=== PATIENT | female | born 1955 | race Caucasian/White ===

== ENCOUNTER → 2022-06-24 12:55 | Outpatient (CLI) | payer MEDICARE, OTHER, SELFPAY ==
[2022-06-24 14:32] LABS: COVID19 -Nasal RAPID Negative (Negative)
== END ==
PROVIDERS: PCP Family Medicine; Referring Provider Orthopaedic Surgery; Visit Provider Orthopaedic Surgery
DX: Z20.822 Contact with and (suspected) exposure to COVID-19 (principal)
CPT/HCPCS: 87635; C9803

== ENCOUNTER 2022-06-26 12:08 | Day surgery (SDC) | payer MEDICARE, OTHER, SELFPAY ==
[2022-06-23 09:47] VITALS: BMI 35.1
[2022-06-26] VITALS (10 sets, daily range): BP systolic 104–145; BP diastolic 60–82; PULSE 63–90; RESP 14–18; TEMP 35.9–36.6; O2SAT 95–99; BMI 35.1
--- NOTE | 2022-06-26 | DI.RAD.S_ITS ---
PROCEDURE: XR HIP W PEL IF DONE LT 2V INDICATIONS: TOTAL LEFT HIP TECHNIQUE: AP pelvis and lateral view of the left hip acquired. COMPARISON: [facility], FREDY, XR PELVIS 1-2V, 06/26/2022, 16:42. FINDINGS: Bones: Left hip arthroplasty, with appropriate appearance. Mild to moderate right hip degenerative changes. Soft tissues: Overlying postoperative changes. Right pelvis/right lower quadrant clips and hernia repair. IMPRESSION: Expected postoperative appearance of left arthroplasty. Pelvic ring not evaluated due to obliquity. Dictated by: Nicolas White M.D. on 06/26/2022 at 19:12 Approved by: Nicolas White M.D. on 06/26/2022 at 19:14
[2022-06-26] MEDS: ACETAMINOPHEN 325 MG TABLET 975 MG PO (12:59)
[2022-06-26] MEDS: LACTATED RINGERS 1,000 ML 42 ML IV ×2 (13:16→16:00)
[2022-06-26] MEDS: VANCOMYCIN 1,000 MG/200 ML PIGGYBACK 200 MG IV (14:19)
--- NOTE | 2022-06-26 14:26 | PM.PREOP ---
Pre-operative Note COVID-19 COVID-19 status: Negative Interval Note History & Physical reviewed/Exam performed by Physician: Yes Changes to H&P: No
--- NOTE | 2022-06-26 14:27 | PM.OP.1 ---
Operative Date/Time/Diagnoses Date of procedure: 06/26/22 Time of procedure: 15:00 Pre-op diagnosis: Severe left hip AVN Post-op diagnosis: same Procedure & Clinicians Procedure: Left total hip arthroplasty, posterior approach Same procedure as scheduled: Yes Indications: The patient has had progressively worsening left hip pain with radiographic changes consistent with arthritis. Non-operative management has failed and the patient has requested total hip replacement. The risks, benefits and alternatives to surgery were discussed with the patient prior to proceeding. Risks discussed included, but were not limited to, failure to relieve pain, leg length discrepancy, dislocation, stiffness, infection, nerve damage, deep venous thrombosis, pulmonary embolism, stroke, coma, heart attack, permanent paralysis and , as well as the potential need for eventual revision of the prosthetic. Surgeon: Sonja Crawford Hot Blaster: Viv Rachel Anesthesia Type: General and Spinal Operative Notes Findings: Severe left hip AVN, adequate stability Closure Type: primary Specimen(s): none sent Prosthetic devices, grafts, tissues, transplants, or devices: Crawford [employer] Nephew 48 mm Redapt cup, neutral poly liner, size 13 cemented Synergy,-3 by 32mm Oxinium head, two 6.5 mm screw, Applied: drain(s) Estimated Blood Loss (mL): 250 Blood products transfused: none Procedure in detail: The patient was seen in the pre-operative area, where the patient identified the left hip as the operative site and this was marked with my initials. The patient received pre-operative antibiotics and was taken to the operating room and placed on the operative table in the right lateral decubitus position after satisfactory anesthesia. A electrical systems drafter out was performed. The left leg was prepared from the ankle to the iliac crest with ChloroPrep in the usual fashion and draped through sterile drapes. The hip was approached through an approximately 20 cm incision centered over the greater trochanter and curving gently posteriorly as it went proximally. This was carried sharply to the fascia sami, which was divided and retracted with a self retaining retractor. The trochanteric bursa was excised with care being taken to avoid the sciatic nerve, which was identified and protected throughout the case. The short external rotators were incised and the capsulomuscular flap was raised and tagged for later repair. The hip was dislocated, and a femoral neck osteotomy performed approximately 15 mm above the lesser trochanter. Retractors were placed around the femur. The canal was opened with a box cutting osteotome, followed by a T handled reamer and a lateralizing reamer. The reamer was then used, followed by sequential broaching until there was good stability of the broach in the femur. Retractors were placed to expose the acetabulum. The labrum and central soft tissues were removed. Reaming was performed initially going up in 2 mm increments, then 1 mm increments until good bite was obtained with an odd sized reamer. The cup 1 mm larger than the last reamer was then inserted using the appropriate anteversion guides. She was further stabilized with several screws as she had severe soft bone. A trial neutral liner was placed. The broach was placed in the canal. A trial head and neck were then placed and the hip relocated and checked for leg length and stability. An intraoperative film confirmed the component position and no evidence of fracture. She had extremely soft bone and there was not good rotational stability of the broach. It was felt that she was better managed with a cemented option. A specifically place the broached it down and then did calcar reaming to optimize her alignment. There was some comminution of the greater trochanter small fragments. The patient was stable in the position of sleep, of squatting, and could be put through a range of motion with 45 degrees internal rotation without dislocation. At 90 degrees flexion, internal rotation to 70? was possible before dislocation. This was felt to be satisfactory and the appropriate components were opened, and the trials were removed. The acetabular liner was impacted into position. The final stem was then cemented into the prepared femoral canal. A brief Betadine soak was performed while trialing with head options. The hip was meticulously irrigated with normal saline. The greater trochanter slight fragmentation was repaired with interrupted Tevdek. Finally the femoral head was impacted onto the stem. The acetabulum was cleared of all material and the hip relocated one final time. The capsulomuscular flap was then repaired to the greater trochanter though an awl hole using the tag sutures. The short external rotators were repaired with a nonabsorbable suture. A deep drain was placed and brought out anteriorly. The fascia sami was closed with Vicryl. The subcutaneous layer was closed with barbed sutures and surgical glue. A tiffany dressing was applied and the patient was taken to recovery having tolerated the procedure well. Complications: none Post-operative Condition: stable Disposition: Acute Care Plan for aftercare: The patient will be maintained on a standard total hip replacement protocol with weight bearing as tolerated and posterior hip precautions. The patient will receive Aspirin and sequential compression devices for DVT prophylaxis. The patient will be discharged home when safe for the home environment.
--- NOTE | 2022-06-26 15:00 | DI.RAD.S_ITS ---
PROCEDURE: XR PELVIS 1-2V INDICATIONS: left SABRA TECHNIQUE: Intra-operative view of the pelvis and hip acquired. [facility] [place] [place] [place], [facility] PELVIS WITH LATERAL HIP LEFT, 05/02/2022, 9:33. FINDINGS: Bones: Intraoperative devices prior to placement of arthroplasty prostheses are in expected positions. No fractures or suspicious bony lesions. Soft tissues: Overlying surgical retractors are present, along with other intraoperative changes. IMPRESSION: Left total hip arthroplasty components are seen in expected positions. Dictated by: Petar Logan M.D. on 06/27/2022 at 11:00 Approved by: Petar Logan M.D. on 06/27/2022 at 11:01
[2022-06-26] MEDS: TRANEXAMIC ACID 1,000 MG VIAL 2000 MG INJ ×2 (15:35→17:57)
[2022-06-26] MEDS: CEFAZOLIN 2 GM/100 ML PREMIX 100 ML IV ×2 (15:35→21:43)
--- NOTE | 2022-06-26 16:01 | SUR.OPER ---
Lateral on padded OR bed. Gel axillary roll. Arms secured on padded armboard with pillow supporting top arm. Padded hip positioner braces x4 - anterior and posterior chest and pelvis. Additional gel pad used anterior pelvis. Gel pad under bottom leg from knee to foot and secured with tape over sheet.
[2022-06-26] MEDS: BUPIVACAINE 0.25% (PF) 60 ML, EPINEPHrine 0.3 MG INJ (16:06)
[2022-06-26] MEDS: BUPIVACAINE LIPOSOME 266 MG/20 ML VIAL INJ (17:45)
--- NOTE | 2022-06-26 18:52 | SUR.PHASEI ---
report called to PADILLA RN and opportunity for questions given. Pt transferring to room 206 and is agreeable with plan of care.
[2022-06-26] MEDS: DULOXETINE 30 MG CAPSULE PO (20:10)
[2022-06-26] MEDS: DOCUSATE 100 MG CAPSULE PO (20:10)
[2022-06-26] MEDS: ROPINIROLE 0.25 MG TABLET 1 MG PO (20:10)
[2022-06-26] MEDS: NYSTATIN POWDER 15GM 1 APPLIC TOP (20:10)
[2022-06-26] MEDS: ASPIRIN EC 81 MG TABLET PO (20:10)
[2022-06-26] MEDS: allopurinoL 300 MG TABLET PO (20:10)
[2022-06-26] MEDS: PRAVASTATIN 20 MG TABLET PO (20:10)
--- NOTE | 2022-06-26 21:52 | PC.NURSE ---
Patient rather motivated to recover. Ambulated to bathroom, standby assist, and voided after being on floor for three hours.
[2022-06-26] MEDS: ACETAMINOPHEN 325 MG TABLET 650 MG PO (23:56)
[2022-06-26] MEDS: hydrOXYzine pamoate 25 MG CAPSULE PO (23:56)
[2022-06-27 03:00] VITALS: BP 126/65; PULSE 58; RESP 16; TEMP 36; O2SAT 95
[2022-06-27] MEDS: CEFAZOLIN 2 GM/100 ML PREMIX 100 ML IV (05:45)
[2022-06-27 06:12] LABS: Hemoglobin 9.3 g/dL (12.0-16.0)
--- NOTE | 2022-06-27 07:32 | PM.DS.1 ---
History of Present Illness History of Present Illness Date Patient Seen: 06/27/22 Time Patient Seen: 07:32 Chief complaint: left total arthroplasty Narrative: Operative Date/Time/Diagnoses Date of procedure: 06/26/22 Time of procedure: 15:00 Pre-op diagnosis: Severe left hip AVN Post-op diagnosis: same Procedure & Clinicians Procedure: Left total hip arthroplasty, posterior approach Same procedure as scheduled: Yes Indications: The patient has had progressively worsening left hip pain with radiographic changes consistent with arthritis. Non-operative management has failed and the patient has requested total hip replacement. The risks, benefits and alternatives to surgery were discussed with the patient prior to proceeding. Risks discussed included, but were not limited to, failure to relieve pain, leg length discrepancy, dislocation, stiffness, infection, nerve damage, deep venous thrombosis, pulmonary embolism, stroke, coma, heart attack, permanent paralysis and , as well as the potential need for eventual revision of the prosthetic. Surgeon: Sonja Crawford Language Arts Teacher: Viv Rachel Anesthesia Type: General and Spinal Operative Notes Findings: Severe left hip AVN, adequate stability Closure Type: primary Specimen(s): none sent Prosthetic devices, grafts, tissues, transplants, or devices: Crawford [employer] Nephew 48 mm Redapt cup, neutral poly liner, size 13 cemented Synergy,-3 by 32mm Oxinium head, two 6.5 mm screw, Applied: drain(s) Estimated Blood Loss (mL): 250 Blood products transfused: none Discharge Providers Provider Discharge Date: 06/27/22 Primary care physician: Ricki Phillips MD Consults: 06/23/22 12:50 Consult to Anesthesiology Routine Comment: Consulting Provider: Anesthesiologist Reason for consultation: Surgeon requested re: Multiple medical problems 06/25/22 16:42 Consult to Anesthesiology Routine Comment: Consulting Provider: Anesthesiologist Reason for consultation: Regional block for post operative pain control 06/26/22 19:12 Consult to Discharge Planning Routine Comment: Consult to Physical Therapy Evaluate & Treat Comment: Physician Instructions: post op SABRA protocol Consult to Respiratory Therapy Evaluate & Treat Comment: Physician Instructions: Evaluate and treat Discharge provider: Deena Elizalde PA-C Summary Hospital Course Discharge Diagnosis: s/p LEFT SABRA Hospital Course: Ms Humphreys'whitley hospital course was uremarkable. On POD# 1 she was comfortable and wanted to go home. She was eating and voiding without difficulty and was evaluated by PT during her stay. Her pain was well-controlled on oral medication. Her late 's cousin was in town to stay with her and help her. Exam Vital Signs (past 8 hours): - 06/27/22 03:00 Temperature 96.8 F L Pulse Rate 58 L Respiratory Rate 16 Blood Pressure 126/65 Pulse Oximetry 95 Oxygen Flow Rate 0 Oxygen Delivery Method Room Air Oxygen Flow Rate 0 Narrative Exam Narrative: 5/5 strength in quadriceps, hamstrings, DF, PF, EHL on left; 3/4 hip flexors. Sensation to light touch intact throughout BLE. Calves soft, compressible, nontender and without palpable cords or masses. TAVO dressing with scant bloody drainage, functioning. Objective Labs Result Diagrams: 06/27/22 05:50 Labs: Laboratory Results - last 24 hr 06/27/22 05:50 Hgb 9.3 L Hct 28.0 L PFSH Medical History Anesthesia complication Arthritis Chronic bronchitis CKD (chronic kidney disease) Colitis Depression Diverticulitis Edema GERD (gastroesophageal reflux disease) Hearing impaired HTN (hypertension) Hypothyroidism Muscle spasm STAN (obstructive sleep apnea) Osteoarthritis Overactive bladder Surgical History History of hysterectomy Hx of bariatric surgery (09/24/21) Hx of breast reduction, elective Hx of hernia repair Hx of tonsillectomy Social History household members: none Smoking Status: Never smoker alcohol intake: current Discharge Assessment & Plan Assessment and Plan Assessment: s/p LEFT total hip arthroplasty Plan of Treatment: D/C home, WBAT to LLE, posterior hip precautions. Multimodal pain control, ASA 81 mg BID x 6 weeks for VTE prophylaxis. Discharge Plan Discharge Plan Patient Disposition: Home Discharge orders & Medications Discharge Orders: Discharge (Order); Ordered 06/27/22 Ordered By: Deena Elizalde Prescriptions: New acetaminophen 325 mg Tablet 650 mg PO Q6HR Qty: 240 1RF aspirin 81 mg Tablet,Delayed Release (Dr/Ec) 81 mg PO BID Qty: 90 0RF docusate sodium 100 mg Capsule 100 mg PO BID Qty: 60 2RF oxycodone 5 mg Tablet 5 mg PO Q4-6H PRN (Reason: Pain, Moderate (4-6)) Qty: 60 0RF Rx Instructions: 1-2 tabs q 4-6 hrs for moderate to severe pain Continued losartan 50 mg Tablet 50 mg PO DAILY furosemide [Lasix] 40 mg Tablet 80 mg PO QPM potassium chloride 10 mEq Capsule, Extended Release 10 meq PO BID fexofenadine 60 mg Tablet 60 mg PO QAM liothyronine 5 mcg Tablet 5 mcg PO DAILY methocarbamol 750 mg Tablet 750 mg PO TID PRN (Reason: Muscle Spasm) pantoprazole 40 mg Tablet,Delayed Release (Dr/Ec) 40 mg PO DAILY levothyroxine 125 mcg Tablet 125 mcg PO DAILY ropinirole 0.5 mg Tablet 0.5 - 1 mg PO BEDTIME Rx Instructions: administer 1-3 hours before bedtime hydroxyzine HCl 25 mg Tablet 25 mg PO BID PRN (Reason: Anxiety) allopurinol 300 mg Tablet 300 mg PO BEDTIME pravastatin 20 mg Tablet 20 mg PO BEDTIME nystatin 100,000 unit/gram Powder 1 applic TOPICAL BID-TID ondansetron 4 mg Tablet,Disintegrating 4 mg PO Q6H PRN (Reason: Nausea) duloxetine 30 mg Capsule,Delayed Release(Dr/Ec) 30 mg PO BID oxybutynin chloride 15 mg Tablet Extended Release 24hr 15 mg PO DAILY Discontinued acetaminophen 500 mg Tablet 500 - 1,000 mg PO Q3-4H PRN (Reason: Pain) Rx Instructions: 500 hydrocodone-acetaminophen 7.5-325 mg Tablet 1 tab PO BID Follow up/Referrals: Sonja Crawford MD [Physician] - As previously scheduled (Follow up with Viv Rachel PA-C, on 07/09/2022 @ 2:00 pm at [facility] in [place].) Ricki Phillips MD [Primary Care Provider] - Diet/Activity/Treatments Diet: Diet as Tolerated Activity: Weightbearing as tolerated to left leg. Posterior hip precautions. Skin/Wound/Dressing Care Report to your healthcare provider any signs of infection, such as:: chills, fever, night sweats, unusual drainage and unusual redness Dressing: May shower. Can get dressing and battery pack wet, but try to keep battery pack out of direct spray. Batteries will in 5-7 days, at which point the battery pack may be cut off and disposed of. Leave dressing in place until follow up in office. No bathing or otherwise soaking incision. Call office if dressing becomes saturated inside. Visit Report/Discharge Packet Instructions: DI for Hip Replacement, How to Prevent Falls, Oxycodone Stand Alone Forms: Surgery Discharge Discharge Data Primary Care Provider: Ricki Phillips Attending Provider: Sonja Crawford
[2022-06-27 09:07] VITALS: BP 133/84; PULSE 88
[2022-06-27] MEDS: DULOXETINE 30 MG CAPSULE PO (09:07)
[2022-06-27] MEDS: LOSARTAN 50 MG TABLET PO (09:07)
[2022-06-27] MEDS: LIOTHYRONINE 5 MCG TABLET PO (09:08)
[2022-06-27] MEDS: PANTOPRAZOLE DR 40 MG TABLET PO (09:08)
[2022-06-27] MEDS: LEVOTHYROXINE 125 MCG TABLET PO (09:08)
[2022-06-27] MEDS: DOCUSATE 100 MG CAPSULE PO (09:08)
[2022-06-27] MEDS: ASPIRIN EC 81 MG TABLET PO (09:08)
[2022-06-27] MEDS: OXYCODONE IR 5 MG TABLET PO (09:09)
[2022-06-27] MEDS: LORATADINE 10 MG TABLET PO (09:10)
--- NOTE | 2022-06-27 09:58 | PT.IIE ---
Current Diagnoses Unilateral primary osteoarthritis, left hip (06/26/22) Idiopathic aseptic necrosis of left femur (06/26/22) Surgery Performed Operation Date: 06/26/22 14:15 Actual Procedures p Total Hip Arthroplasty(Left) - Sonja Crawford MD Surgical History (Last Reviewed 06/26/22 @ 12:40 by Ryann Tang, RN) History of hysterectomy Hx of bariatric surgery (09/24/21) Hx of breast reduction, elective Hx of hernia repair Hx of tonsillectomy Medical History (Last Reviewed 06/26/22 @ 12:40 by Ryann Tang, BETTE) Anesthesia complication Arthritis Chronic bronchitis CKD (chronic kidney disease) Colitis Depression Diverticulitis Edema GERD (gastroesophageal reflux disease) Hearing impaired HTN (hypertension) Hypothyroidism Muscle spasm STAN (obstructive sleep apnea) Osteoarthritis Overactive bladder Physical Therapy Inpatient Evaluation/Re-Eval M1 PT/OT-IP Prior Functional Status Start: 06/27/22 12:46 Freq: NEEDED Status: Active Protocol: Document 06/27/22 09:58 AB (Rec: 06/27/22 13:01 [email or web address]) Medical Review Prior Functional Status Medical History Reviewed Yes Communication able to make needs known Mobility and Gait pt stated that she is independent with all mobilities and ambulation using FWW; able to ambulate short distance using SPC from car to cart when going grocery shopping Social History Household Members none Living Arrangements Apartment/Condo Number of Floors (Floors) One Floor Number of Stairs To Enter/Railing? no steps to enter pt lives in a senior housing Home Environment High Toilet,Walk in Shower Home Equipment Front Wheel Walker,Shower Seat with Backrest,Shower Seat without Backrest,Hand Held Shower,Grab Bars In Shower Additional Social History Comment pt's cousin will be staying with pt for ~ 1week to assist her pt stated that she has to step up a stool to get into her high bed M2 PT-IP Current Condition Start: 06/27/22 12:46 Freq: NEEDED Status: Active Protocol: Document 06/27/22 09:58 AB (Rec: 06/27/22 13:01 [email or web address]) Physical Therapy Current Condition Current Condition Evaluation Date 06/27/22 Treatment Diagnosis s/p L SABRA posterior approach; difficulty in walking Onset Date 06/26/22 M3 PT-IP Subjective Start: 06/27/22 12:46 Freq: NEEDED Status: Active Protocol: Document 06/27/22 09:58 AB (Rec: 06/27/22 13:01 AB [email or web address]) Subjective Physical Therapy Visit Type Type Initial Evaluation Visit Start Time 09:58 Visit Stop Time 11:19 Total Visit Minutes 81 Number of SEAMAN OFFICER Visits 0 Physical Therapy Visit Comments Patient Comments agreeable to do PT M4 PT-IP Mobility and Gait Start: 06/27/22 12:46 Freq: NEEDED Status: Active Protocol: Document 06/27/22 09:58 AB (Rec: 06/27/22 13:01 AB [id number]) PT-Bed Mobility Assessment Supine to Sit Supine to Sit Minimal Assistance,Moderate Assistance,1 Person Assistance Sit to Supine Sit to Supine Minimal Assistance,Moderate Assistance PT-Transfer Assessment Sit to and From Stand Sit to and from Stand Contact Guard Assistance, Minimal Assistance,1 Person Assistance,Use of Upper Extremities Equipment Transfer Assistive Device Gait Belt,Front Wheeled Walker Orthotic/Prosthetic Devices or Brace: No Transfers Transfer Destination Chair Transfer Technique ambulated Transfer Ability Level of Assist Contact Guard Assistance, Minimal Assistance,1 Person Assistance,Use of Upper Extremities Comments Mobility Comments educated pt and caregiver on posterior hip precautions. pt able to recall after initial cues provided. completed supine to sit mod A and cues. Caregiver training conducted. educated pt and caregiver on supine<>sit techniques and how caregiver will assist pt with bed mobility. pt completed again and caregiver was able to assist pt safely. educated caregiver on use of safety belt and how to assist pt. caregiver was able to put safety belt on and assisted pt with sit to stand CGA to min A and ambulated in room ~ 30 ft CGA to min A. educated pt on up/down step stool to get into the bed. step stool positioned to EOB and pt was able to get up the step using FWW CGA to min A. required max A and 3 attempts to descent to the step. informed pt and caregiver to use FWW to get into the bed but will not need step stool to get up from the bed. pt demonstrated again and completed with caregiver assisting. pt ambulated to the chair using FWW CGA to min A. positioned pt on the chair . call light and table placed within reach. pt and caregiver has no other concerns. Gait Assessment Gait Gait Assistance Required: Contact Guard Assist,Minimum Assistance Distance (Feet) 30 Able to Maintain Weight Bearing Status Yes During Gait Assistive Devices Assistive Device Gait Belt,Front Wheeled Walker Orthotic/Prosthetic Devices or Brace: No Gait Deviations General Gait Pattern Antalgic,Decreased Stride Length,Decreased Feet Clearance,Step-to Gait Factors Limiting Gait Function Factors Limiting Gait Function Decreased Activity Tolerance, Decreased Strength,Difficulty Following Directions,Limited Range of Motion,Pain,Poor Balance,Poor Safety Awareness Stair Climbing Assessment Evaluation Level of Assist On Stairs Contact Guard Assistance, Minimal Assistance,Maximal Assistance Devices Stair Climbing Assistive Devices Front Wheel Walker Technique/Endurance Stair Climbing Direction Ascend and Descend Stair Climbing Technique Step to Step Number of Steps Climbed 1 Query Text: Stair Climbing Set # Repetitions (reps) 2 Comments Stair Climbing Comments pls refer to mobility section for details PT-Balance Assessment Sitting Balance and Reactions Static Sitting Balance Ability Good Dynamic Sitting Balance Ability Good Standing Balance and Reactions Static Standing Balance Ability Fair Dynamic Standing Balance Ability Fair Device Used FWW M5 PT-IP Objective Assessments Start: 06/27/22 12:46 Freq: NEEDED Status: Active Protocol: Document 06/27/22 09:58 AB (Rec: 06/27/22 13:01 [email or web address]) Orientation Orientation/Cognition Level of Alertness Alert Orientation Name,Age,Place,Situation Language Function Ability Hard of Hearing Safety Awareness Decreased Safety Awareness Memory Description No Deficits Noted Gross Range of Motion Lower Extremity ROM Assessment Within Functional Limits Strength Lower Extremity Strength Assessment Left Impaired Hip 3+/5 Knee 3+/5 Coordination Assessment Gross Coordination Gross Coordination WNL Sensation Assessment Sensation Gross Sensation WNL Muscle Tone Muscle Tone WNL Yes M6 PT-IP Treatment Start: 06/27/22 12:46 Freq: NEEDED Status: Active Protocol: Document 06/27/22 09:58 AB (Rec: 06/27/22 13:01 [email or web address]) Physical Therapy Treatment Education Education Provided Precautions,Weight Bearing Status,Post-Op Packet,Safety M7 PT-IP Assessment and Plan Start: 06/27/22 12:46 Freq: NEEDED Status: Active Protocol: Document 06/27/22 09:58 AB (Rec: 06/27/22 13:01 [email or web address]) PT Summary Assessment and Plan Potential Rehabilitation Potential Fair Status of Condition at Evaluation Evolving Summary Impairments Pain,ROM,Strength,Balance, Coordination,Sensation,Tone, Cognition,Bed Mobility, Transfers,Gait,Activity Tolerance Assessment Summary pt requiring CGA to min A with mobility. caregiver training conducted and pt's cousin will be able to assist pt. pt will benefit from HHPT. Goals Bed Mobility Goal Standby Assistance Transfer Goal Standby Assistance,Front Wheeled Walker Gait Goal Standby Assistance,Front Wheel Walker Gait Distance 200 Other Goals up/down step stool using FWW Frequency of Treatment Frequency Of Treatment Twice a Day Treatment Plan Physical Therapy Treatment Plan Bed Mobility Training,Transfer Training,Gait Training, Therapeutic Exercise,Balance Retraining,Post Op Education, Discharge Planning,Hot or Cold Pack,Neuromuscular Re-ed, Coordination Retraining,Manual Therapy Precautions Posterior Hip Precautions No Hip Flexion > 90 degrees,No Hip Internal Rotation,No Hip Adduction Weight Bearing Status Weight Bearing Status Weight Bear as Tolerated Allowed Weight Bearing Amount (enter % LLE WBAT or #) (%) Recommendations To Nursing Amount of Assist Needed 1 Person Assist Discharge Recommendations PT Discharge Recommendations Home with 01/06 Assist Available,Home Health Transportation Needs at Discharge Private Vehicle
--- NOTE | 2022-06-27 11:15 | CM.DANOTE ---
DCP Assessment: Payor: Medicare PCP: MD Alan Pt is a 67 y.o. F who presented to the hospital for planned L hip surgery. Pt was taken to the OR on 06/26 and surgery performed by Dr. Crawford. Pt admitted for further evaluation and management of surgical procedure. DCP met with pt this morning to discuss discharge needs. Pt sitting up in the bed watching TV. DCP introduced herself and role. Pt states she lives alone in [place] in an apartment on the ground level. Pt states that she owns a walker and cane and still drives at baseline. Pt states that she has a friend, Loulou, who was presented in the room, who would be assisting her home and helping her recover. Loulou will provide transport from the hospital. Pt denies any resources needs at this time. DCP does not identify any at this time. Pt to work with PT evaluation today and if cleared, pt to be discharged. Whiteboard updated and instructed to call. Pt thankful for the discussion. P: Pt to do PT eval and if she passes, pt to discharge home via friend POV. Ritu Downing RN/JOHNSON Discharge Planning/Care Management CM Discharge Assessment Start: 06/27/22 08:03 Freq: Status: Active Protocol: Document 06/27/22 09:20 AJ (Rec: 06/27/22 09:21 AJ [id number]) Discharge Planning Assessment Assigned White Metal Corrosion Proofer Ritu Downing RN/JOHNSON Advance Directives? Yes Advance Directives on File No History Provided By Patient Prior Living Arrangements Apartment/Condo Household Members none Type of transporation used prior to Drives own vehicle admit Independent with ADL's Yes Is patient alert and oriented? Yes DME Already Rented / Owned FWW / Walker,Cane Discharge Plan Home Referrals Initiated None needed Whiteboard Updated in Patient Room with Yes name and ext. # of White Metal Corrosion Proofer Comment Instructed to call Review Status In Process Please Provide Date Initial DC 06/27/22 Assessment Was Performed Next Review Type Continued Stay Review Pre-Anesthesia Assessment Start: 06/20/22 08:44 Freq: Status: Active Protocol: Document 06/23/22 09:47 CAB (Rec: 06/20/22 09:06 CAB [id number]) Pre-Anesthesia Assessment PAC Comment Pt refuses any IVs placed to dorsum of hands, causes severe swelling Patient Information Reviewed Via Phone Assessment Assessment Completed With Patient Diagnostic Results BMP/CMP,CBC,EKG,Urinalysis Comment Outside labs/ECG scanned, COVID screen @ [facility] 06/24/22 Primary Care Provider Ricki Phillips Medical Clearance Received Yes Seen Specialist in Last 12 Months Yes Specialist Seen Orthopedist Comment PCP pre-op 05/05/22 w/clearance form scanned Primary Language Yakut Brusher Operator Required No Height 147.32 cm Weight 76.204 kg Body Mass Index (BMI) 35.1 Hearing Ability Hard of Hearing,Use of Hearing Aid Visual Assist Glasses Dentition Type Teeth, Natural Present,Teeth, Missing Barriers to Learning Auditory Hx Anesthesia Reactions Yes: Severe PONV, Reglan worked well pre-op, daniel- operative, post-op Hx Family Anesthesia Reaction No Hx Malignant Hyperthermia No Hx Blood Transfusions No Anesthesia Review Requested Yes: Surgeon requested re: Multiple medical problems. alcohol intake current alcohol intake frequency holidays/special occasions only Smoking Status Never smoker Substance Use Type does not use Pain Present Pain Reported Musculoskeletal Symptoms Abnormal Gait,Back Pain, Difficulty Walking,Joint Pain, Muscle Spasms History of Falling (Recent or History of Yes ) Patient is completely paralyzed or No completely immobile Prosthesis or Orthotic Device Front Wheel Walker Mental Status Oriented to own ability Is patient on oxygen? No Does patient have MATTA/SOB No Hx Sleep Apnea Yes: Resolved after losing 100lbs w/gastric sleeve surgery Currently Taking a Beta Nellie No Can You Climb a Flight of Stairs Without No SOB Hx Chest Pain Yes: If I eat too much or too fast Hx SOB No Hx Syncope or Dizziness No Anti-Coagulant Therapy No Has a Merchandise Buyer No Cardiac Testing No Hx Pacemaker/ICD No Pacemaker Rep Required? No Diet Type At Home Regular dysphagia Yes: With large pills Gastrointestinal Symptoms Reflux Bladder Pattern Frequency,Urgency Urinary Catheter Present No Hx Urinary Self Catheterization No Diabetes No Patient No Lactating No Hx Drug Resistant Organism Yes: C-diff 2018, 2020, MRSA - face 2020 Presence of External or Internal Medical Yes: Gastric sleeve Devices Have you had any close contact with No someone diagnosed with COVID-19? Received a COVID vaccine? Yes Received all doses? Yes Marital Status / Lives With none Prior Living Arrangements Apartment/Condo Support System Family Does the Patient Have Assistance After Yes: Family cousin plans to Surgery stay w/pt to assist with care Patient Discharge Plan Description Return Home Comment Pt advised overnight length of stay per surgeon Additional comment She and her sister care for her mother who is blind. Feels Safe in Current Environment Yes Been Physically Hurt or Threatened By a No Person in Current Environment Do you have thoughts of harming yourself None or others? Are you currently considering suicide? No Do you have a plan to hurt yourself or No Plan others? Do You Have Any Spiritual Beliefs That No May Affect Your HC Choices? Do You Have Any Cultural Practices That No May Affect Your HC Choices? Comment [place]eterian Who Can We Speak to About Patient's Care Family, friends Identifying Code for Release of Patient Declines to issue Information Health Care Proxy/Next of Kin Rylee Gonzalez (mackenzie) Rocky (son ) Health Care Proxy Phone Number Rylee: [phone] Rocky: [phone] Emergency Contact Name Rylee alonso) Rocky (son ) Emergency Contact Phone Number Rylee: [phone] Rocky: Advance Directives? Yes Advance Directives on File No Requested Patient Bring Advanced Yes Directives DOS Power of Diamond Expert Yes Power of Diamond Expert Name Rylee Gonzalez (mackenzie) Rocky (son ) Power of Diamond Expert Phone Number Rylee: [phone] Rocky: [phone] PAC Instructions Do not shave/clip surgical site,Durable medical equipment ,Medications to take/avoid, Nasal antibiotic,No ETOH/ petroleum product on skin DOS, NPO,Post-op transportation,Pre -surgical wash,Sensory aids, Sturdy shoes/comfortable clothes,Do not bring valuables and remove jewelry
== END 2022-06-27 13:05 | disposition home or self-care (01) ==
LOC: OR 12:11 → AC 12:12
PROVIDERS: PCP Family Medicine; Referring Provider Orthopaedic Surgery; Visit Provider Orthopaedic Surgery
PROC: 0SRB0JZ Replacement of Left Hip Joint with Synthetic Substitute, Open Approach (ICD-10-PCS; CPT 27130; principal; 2022-06-26 14:15)
DX: M16.12 Unilateral primary osteoarthritis, left hip (principal); M87.052 Idiopathic aseptic necrosis of left femur; J45.909 Unspecified asthma, uncomplicated; I10 Essential (primary) hypertension; K21.9 Gastro-esophageal reflux disease without esophagitis; E66.01 Morbid (severe) obesity due to excess calories; Z68.34 Body mass index [BMI] 34.0-34.9, adult
CPT/HCPCS: 27130; 36415; 72170; 73502; 85014; 85018; 97162; 97530; C1776; C9290; J0171; J0690; J1100; J2250; J2274; J2405; J2704; J2765; J3010

== ENCOUNTER 2024-02-04 13:03 | Day surgery (SDC) | payer MEDICARE, OTHER, SELFPAY ==
[2022-06-26 12:13] VITALS: BMI 35.1
[2024-02-02 12:08] VITALS: BMI 34.4
[2024-02-04 14:13] VITALS: BP 159/82; PULSE 72; RESP 17; TEMP 36.8; O2SAT 100; BMI 37.6
[2024-02-04] MEDS: LACTATED RINGERS 1,000 ML 42 ML IV (14:34)
--- NOTE | 2024-02-04 15:20 | PM.HP.1 ---
History of Present Illness History of Present Illness Date Patient Seen: 02/04/24 Time Patient Seen: 15:20 Chief complaint: Left Thumb Ligament Reconstruction/Repair Narrative: 68-year-old female with longstanding basal thumb arthritis that has been unresponsive to conservative treatment. [facility] Medical History GERD (gastroesophageal reflux disease) Colitis Diverticulitis Hearing impaired Anesthesia complication Edema STAN (obstructive sleep apnea) Muscle spasm Osteoarthritis Hypothyroidism Overactive bladder HTN (hypertension) Depression CKD (chronic kidney disease) Chronic bronchitis Arthritis Surgical History History of total left hip replacement (06/26/22) Hx of tonsillectomy History of hysterectomy Hx of hernia repair Hx of breast reduction, elective Hx of bariatric surgery (09/24/21) Social History household members: none Smoking Status: Never smoker alcohol intake: current Meds Home Medications and Allergies Home Medications Medication Instructions Recorded Confirmed Type allopurinol 300 mg tablet 300 mg PO BEDTIME 06/23/22 02/04/24 History duloxetine 30 mg capsule,delayed 30 mg PO BID 06/23/22 02/04/24 History release fexofenadine 60 mg tablet (Laure 60 mg PO QAM 06/23/22 02/04/24 History Allergy) furosemide 40 mg tablet (Lasix) 80 mg PO QPM 06/23/22 02/04/24 History hydroxyzine HCl 25 mg tablet 25 mg PO BID PRN Anxiety 06/23/22 02/04/24 History levothyroxine 125 mcg tablet 125 mcg PO DAILY 06/23/22 02/04/24 History losartan 50 mg tablet 50 mg PO DAILY 06/23/22 02/04/24 History nystatin 100,000 unit/gram topical 1 applic topical BID-TID 06/23/22 02/04/24 History powder ondansetron 4 mg disintegrating 4 mg PO Q6H PRN Nausea 06/23/22 02/04/24 History tablet oxybutynin chloride 15 mg 15 mg PO DAILY 06/23/22 02/04/24 History tablet,extended release 24 hr pantoprazole 40 mg tablet,delayed 40 mg PO DAILY 06/23/22 02/04/24 History release potassium chloride 10 mEq 10 meq PO BID 06/23/22 02/04/24 History capsule,extended release pravastatin 20 mg tablet 20 mg PO BEDTIME 06/23/22 02/04/24 History ropinirole 0.5 mg tablet 0.5 - 1 mg PO BEDTIME RLS, spasms 06/23/22 02/04/24 History acetaminophen 325 mg tablet 650 mg (2 x 325 mg) PO Q6HR #240 06/27/22 02/04/24 Rx tabs docusate sodium 100 mg capsule 100 mg PO BID #60 caps 06/27/22 02/04/24 Rx oxycodone 5 mg tablet 5 mg PO Q4-6H PRN Pain, Moderate 06/27/22 02/04/24 Rx (4-6) #60 tabs bupropion HCl 300 mg 24 hr tablet, 300 mg PO DAILY 02/04/24 02/04/24 History extended release lidocaine 5 % topical patch patch topical DAILY 02/04/24 History meloxicam 15 mg tablet 15 mg PO DAILY 02/04/24 02/04/24 History modafinil 100 mg tablet 100 mg PO DAILY 02/04/24 02/04/24 History Allergies Allergy/AdvReac Type Severity Reaction Status Date / Time piroxicam Allergy Severe Hives, rash Verified 02/04/24 13:58 adhesive Allergy Mild Rash, Verified 02/04/24 13:58 swelling - Paper tape, transpore tape ok erythromycin base AdvReac Severe Nausea and Verified 02/04/24 13:58 vomiting ibuprofen AdvReac Severe Avoids-Chronic Verified 02/04/24 13:58 kidney disease, poor renal function Exam Vital Signs (past 8 hours): - 02/04/24 14:13 Temperature 98.3 F Pulse Rate 72 Respiratory Rate 17 Blood Pressure 159/82 H Pulse Oximetry 100 Oxygen Delivery Method Room Air Oxygen Delivery Method Room Air Narrative Exam Narrative: Arthritic changes to the basal joint with a positive shoulder sign as well as joint enlargement. Decrease in both radial and palmar abduction as well as opposition. Tenderness to palpation over the basal joint with positive crepitus and positive grind test. Ulnar median radial nerve intact to both motor and sensory function. Full range of motion of the wrist and digits. Assessment & Plan Assessment & Plan narrative: Patient with end-stage arthritis to the basal joint unresponsive to conservative treatment. Patient is interested in proceeding with surgery to address the basal thumb arthritis. The risk, benefits, alternatives, possible complications, operative course, and postop outcomes were discussed. Complications including but not limiting to bleeding, infection, fracture, nerve injury, continued pain postoperatively or instability postoperatively were discussed in detail. Medical complications including but not limited to deep venous thrombosis event, anesthesia complications with excessive bleeding, vascular events or cardiac events and other possible complications were discussed in detail. Need for postoperative rehabilitation and anticipated hospital stay and clinical course were discussed in detail. Patient acknowledges understanding and elects to proceed with surgery.
--- NOTE | 2024-02-04 15:22 | PM.PREOP ---
Pre-operative Note Interval Note History & Physical reviewed/Exam performed by Physician: Yes Changes to H&P: No
[2024-02-04] MEDS: CEFAZOLIN 2 GM/100 ML PREMIX 100 ML IV (16:15)
--- NOTE | 2024-02-04 16:30 | SUR.OPER ---
Supine on padded OR bed, head on pillow, non-operative arm secured on padded arm board at <90 degrees abduction, operative arm board on arm table at <90 degrees abduction, legs uncrossed, safety belt at thigh, tape over blanket over lower legs.
[2024-02-04] MEDS: BUPIVACAINE 0.5% (PF) 30 ML, EPINEPHrine 0.15 MG INJ (16:34)
[2024-02-04 17:10] VITALS: BP 150/74; PULSE 78; RESP 14; TEMP 37.1; O2SAT 98
--- NOTE | 2024-02-04 17:13 | PM.OP.1 ---
Operative Date/Time/Diagnoses Date of procedure: 02/04/24 Time of procedure: 16:00 Pre-op diagnosis: Left basal thumb arthritis Post-op diagnosis: same Procedure & Clinicians Procedure: LRTI left thumb Same procedure as scheduled: Yes Indications: Basal thumb arthritis Surgeon: Maciej Peng Ballast Cleaning Machine Operator: Giorgi Colbert Anesthesia Type: General Operative Notes Findings: End-stage arthritis basal joint Closure Type: primary Applied: implant(s) (Tenodesis screw) Estimated Blood Loss (mL): 5 Tourniquet time (min): 32 Procedure in detail: On date of service, the patient was met in the holding area. The operative site was signed and witnessed by the OR staff. The surgery was once again discussed with patient, and any remaining questions Were answered fully. Patient was taken back to the operating theater and placed on the operating table in a supine position. Great care was taken to ensure that all bony prominences were properly padded. A well-padded tourniquet was placed up along the upper extremity. A timeout was performed verifying patient's name, procedure, and operative site. The arm was prepped and draped in the normal sterile fashion. An Esmarch was used to exsanguinate the limb and the tourniquet was turned up to 250 mm mercury. A 15 blade was used to incise the skin only in a dorsal radial position. Pickups and tenotomy 3 used to dissect down through the fascial tissue. Great care was taken to ensure that the branches off the superficial radial nerve root identified and protected. Next, an interval was made between EPB and APL. The recurrent branch of the radial artery was identified and protected. The capsular tissues surrounding the basal joints was opened and released around the trapezium and a 360? fashion. This gave us good visualization of the basal joint as well as the trapezial scaphoid joint. Significant arthritis at the basal joints but no sign of any arthritis at the trapezial scaphoid joint. Next the trapezium was removed as well as any potential osteophytes. The wound was then copiously irrigated to remove any remaining bony fragments. The FCR tendon was then harvested. A drill was then used to make a bony tunnel through the first metacarpal. Guidewire was placed through the bony tunnel and the FCR tendon was pulled through the bony tunnel. With the tendon under tension, a tenodesis screw was placed securing the tendon into the bony tunnel. This provided a secure suspension plasty of the thumb, as well as recreating the beak ligament. The wound was irrigated once again. A thick capsular closure was performed using 2-0 Ethibond. The rest of the wound was closed in a layered fashion. The hand was then cleaned, dried, and dressed. Patient was placed into a thumb spica splint. Patient was taken back to the PACU in stable condition. The assistance of a skilled neurosurgical physician assistant was necessary during this procedure for reducing the fracture during the placement of the raza. The case would have been much longer and more difficult had an or assistant not been available. The services of the neurosurgical physician assistant were necessary for this case. Post-operative Condition: stable Disposition: PACU Plan for aftercare: Patient will follow our postoperative protocol for LRTI
[2024-02-04 17:15] VITALS: BP 147/75; PULSE 74; RESP 17; O2SAT 97
[2024-02-04 17:20] VITALS: BP 128/60; PULSE 77; RESP 16; O2SAT 77
[2024-02-04 17:25] VITALS: BP 136/66; PULSE 76; RESP 19; O2SAT 96
[2024-02-04] MEDS: OXYCODONE IR 5 MG TABLET PO (17:38)
[2024-02-04 17:55] VITALS: BP 128/72; PULSE 74; RESP 16; TEMP 36.7; O2SAT 97
== END 2024-02-04 18:09 | disposition home or self-care (01) ==
PROVIDERS: PCP Family Medicine; Referring Provider Orthopaedic Surgery; Visit Provider Orthopaedic Surgery
PROC: (CPT 26540; principal; 2024-02-04 15:00)
DX: M18.12 Unilateral primary osteoarthritis of first carpometacarpal joint, left hand (principal)
CPT/HCPCS: 25447; 25310; C9356; J0171; J0690; J1100; J2405; J2704; J2765; J3010

== ENCOUNTER → 2024-03-22 10:49 | Outpatient (CLI) | payer MEDICARE, OTHER, SELFPAY ==
[2022-06-26 12:13] VITALS: BMI 35.1
[2024-03-22 11:34] LABS: Add Manual Diff / Slide Review NO; Basophils Absolute Auto 0 /uL (0-100); Basophils Percent Auto 0.6 % (0-2); Eosinophils Absolute Auto 200 /uL (0-450); Eosinophils Percent Auto 3.7 % (2-4); Hemoglobin 10.6 g/dL (12.0-16.0); Lymphocytes Absolute Auto 1800 /uL (1100-4500); Lymphocytes Percent Auto 31.3 % (25-40); Mean Corpuscular Hemoglobin 29.9 PG (26-34); Mean Corpuscular Volume 93.5 fL (80-100); Monocytes Absolute Auto 500 /uL (0-900); Monocytes Percent Auto 9.4 % (3-14); Neutrophils Absolute Auto 3100 /uL (1500-7000); Platelet Count 209 X10^3/uL (150-400); Red Blood Cell Count 3.53 X10^6/uL (4.0-5.2); Red Cell Distribution Width 16.8 % (11.6-14.8); White Blood Cell Count 5.6 X10^3/uL (4.5-11.0)
[2024-03-22 11:38] LABS: Hemoglobin A1C% w Est Avg Glu 5.3 % (4.0-6.0)
[2024-03-22 11:44] LABS: BUN Creatinine Ratio 20.7 (6-22); Blood Urea Nitrogen 17 mg/dL (7-17); Calcium 9.4 mg/dL (8.4-10.2); Carbon Dioxide 26 mmol/L (22-32); Chloride 106 mmol/L (98-107); Estimated Glomerular Filt Rate > 60 mL/min (>60); Glucose 78 mg/dL (80-110); HEMOLYSIS < 15 (0-50); Sodium 137 mmol/L (137-145)
== END ==
PROVIDERS: PCP Family Medicine; Referring Provider Orthopaedic Surgery; Visit Provider Orthopaedic Surgery
DX: Z01.818 Encounter for other preprocedural examination (principal); R73.9 Hyperglycemia, unspecified; Z01.812 Encounter for preprocedural laboratory examination; N39.0 Urinary tract infection, site not specified
CPT/HCPCS: 36415; 80048; 83036; 85025; 93005; 93010

== ENCOUNTER 2024-04-22 10:51 | Day surgery (SDC) | payer MEDICARE, OTHER, SELFPAY ==
[2022-06-26 12:13] VITALS: BMI 35.1
[2024-04-14 13:24] VITALS: BMI 34.4
[2024-04-22] VITALS (11 sets, daily range): BP systolic 132–169; BP diastolic 64–90; PULSE 69–91; RESP 12–17; TEMP 36.1–36.8; O2SAT 92–99; BMI 34.4
--- NOTE | 2024-04-22 06:00 | DI.RAD.S_ITS ---
PROCEDURE: XR KNEE RT 1TO2V INDICATIONS: TKA TECHNIQUE: 2 view(s) of the knee acquired. COMPARISON: None. FINDINGS: Bones: Patient is status post knee joint arthroplasty. Hardware components are in expected positions. Visualized bony structures are intact. Soft tissues: Overlying postoperative changes are noted. IMPRESSION: Expected post-operative appearance of a knee arthroplasty. Dictated by: Oscar Hsu M.D. on 04/22/2024 at 17:15 Approved by: Oscar Hsu M.D. on 04/22/2024 at 17:15
[2024-04-22] MEDS: ACETAMINOPHEN 325 MG TABLET 975 MG PO ×2 (11:48→20:49)
[2024-04-22] MEDS: VANCOMYCIN 1,000 MG/200 ML PIGGYBACK 200 MG IV (11:54)
--- NOTE | 2024-04-22 12:07 | PM.PREOP ---
Pre-operative Note Interval Note History & Physical reviewed/Exam performed by Physician: Yes Changes to H&P: No
--- NOTE | 2024-04-22 12:07 | PM.OP.1 ---
Operative Date/Time/Diagnoses Date of procedure: 04/22/24 Time of procedure: 12:30 Pre-op diagnosis: Severe right knee OA Post-op diagnosis: same Procedure & Clinicians Procedure: Right total knee arthroplasty Same procedure as scheduled: Yes Indications: The patient has had progressively worsening right knee pain with radiographic changes consistent with arthritis. Non-operative management has failed and the patient has requested total knee replacement. The risks, benefits and alternatives to surgery were discussed with the patient prior to proceeding. Risks discussed included, but were not limited to, failure to relieve pain, stiffness, infection, nerve damage, deep venous thrombosis, pulmonary embolism, stroke, coma, heart attack, permanent paralysis and , as well as the potential need for eventual revision of the prosthetic. Surgeon: Sonja Crawford Administrative Law Judge: Lucretia Doyle Anesthesia Type: General Operative Notes Findings: Severe right knee OA, adequate stability Closure Type: primary Specimen(s): none sent Prosthetic devices, grafts, tissues, transplants, or devices: Crawford and nephew abhilashney BCS 2 size 4 femur, size 2 tibia, +9 poly, 32 x 7.5 mm patella Estimated Blood Loss (mL): 250 Blood products transfused: none Procedure in detail: The patient was seen in the pre-operative area, where the patient identified the right knee as the operative site and this was marked with my initials. The patient received pre-operative antibiotics, and was taken to the operating room and placed on the operative table in the supine position. After satisfactory anesthesia, a audience coordinator out was performed. The right leg was encircled with a tourniquet about the proximal thigh, and the leg was prepared from the toes to the tourniquet with ChloroPrep in the usual fashion and draped through sterile drapes. The leg was elevated and exsanguinated with Eschmark bandage and the tourniquet inflated to [250] mmHg pressure. A PA was used during the procedure and was essential for intraoperative retraction and safe implantation of the components. The knee was approached through an approximately 18 cm incision centered over the patella and carried into the knee through a medial parapatellar arthrotomy. Portion of the medial and lateral meniscus was resected. Soft tissue was carefully mobilized around the patella the patella was measured with a caliper. Bone was resected from the patella and the patellar height was reconstituted with up an appropriate sized patellar component. A cover was then placed on the patella. A small amount of additional medial and lateral meniscus was resected. CORI pins were placed in the femur and in the tibia for navigation. The knee was meticulously mapped. A plan was taken and developed mapping the distal femur in the proximal tibia and doing a stressed and non stress range of motion. The Cori bur was used for distal femoral resection. It looked like an appropriate distal femoral cut and the cut was made without difficulty. The rotation was assessed and the appropriate size femoral guide was placed on the distal femur and finishing cuts were made. There was no evidence of notching. The anterior, posterior and chamfer cuts were then made. The posterior osteophytes and soft tissues were then removed. The posterior capsule was injected with part of a mixture of 60 ml 0.25% Marcaine mixed with 20 ml Exparel for post operative pain control. The remainder of this mixture was injected into the capsule and subcutaneous tissues during cement curing. The tibia was carefully navigated using the Cori robotic assisted navigation. The rotation was assessed. The patient was placed in extension residual medial and lateral meniscus as well as any residual bone was carefully resected. [No] additional tibia was resected. Hemostasis was achieved especially posteriorly. Additional local was injected into the posterior capsule. The extension gap was assessed. The femoral component trial was placed and the notch was finished. Trial tibial and femoral components were then placed and the knee placed through a range of motion. Range of motion was [0-130], with good stability throughout the range. The trials were then removed, and the tibia was finished. The bone was prepared with pulsatile lavage, and dried with a sponge. Cement was applied and the final prosthetics placed. Excess cement was removed during and after cement curing. A brief Betadine soak was performed. After confirming there was no extruded cement posteriorly, the final tibial insert was placed. The knee was copiously irrigated and the tourniquet deflated. Hemostasis was obtained with the Bovie cautery. The capsule was closed with interrupted # 1 suture. The subcutaneous layer was closed with barbed sutures, and the skin with a running 3-0 V-Lock suture and Surgical glue. A picodressing was applied and the patient was taken to recovery having tolerated the procedure well. Complications: none Post-operative Condition: stable Disposition: Acute Care Plan for aftercare: The patient will be maintained on a standard total knee replacement protocol with weight bearing as tolerated. The patient will receive aspirin and sequential compression devices for DVT prophylaxis. The patient will be discharged home when safe for the home environment.
[2024-04-22] MEDS: TRANEXAMIC ACID 1,000 MG VIAL 1000 MG INJ ×2 (13:10→15:15)
[2024-04-22] MEDS: CEFAZOLIN 2 GM/100 ML PREMIX 100 ML IV ×2 (13:12→20:50)
--- NOTE | 2024-04-22 13:35 | SUR.OPER ---
Supine on padded OR bed. Pillow under head, arms secured on padded armboards <90 degree abduction. Safety belt across torso. Non-operative leg secured with tape over blanket over lower leg. Operative leg secured in DeMayo positioner. Foam padded brace at thigh of operative leg.
[2024-04-22] MEDS: LACTATED RINGERS 1,000 ML 42 ML IV (14:46)
[2024-04-22] MEDS: BUPIVACAINE LIPOSOME 266 MG/20 ML VIAL INJ (15:24)
[2024-04-22] MEDS: BUPIVACAINE 0.25% (PF) 60 ML, EPINEPHrine 0.3 MG INJ (15:24)
[2024-04-22] MEDS: OXYCODONE IR 5 MG TABLET PO ×2 (16:36→22:12)
[2024-04-22] MEDS: KETOROLAC 30 MG/ML VIAL 15 MG IV (16:48)
[2024-04-22] MEDS: MEPERIDINE 50 MG/ML INJ 12.5 MG IV (16:48)
[2024-04-22] MEDS: LACTATED RINGERS 1,000 ML 100 ML IV (17:54)
--- NOTE | 2024-04-22 18:12 | PC.NURSE ---
Addendum entered by Connie Torrez R.N. 04/22/24 18:59: Pt declines pain medication at this time, will let nursing staff know when she wants pain medication. Pt instructed on when she needs to void by based on surgery time. Original Note: Admission note Pt arrived on floor, oriented but drowsy from anesthesia and pain meds, Vital signs stable, pain 6/10. Called provider to ask for clarification on code status and pain medications. Left message and awaiting call back.
[2024-04-22] MEDS: LOSARTAN 50 MG TABLET 100 MG PO (20:49)
[2024-04-22] MEDS: DOCUSATE 100 MG CAPSULE PO (20:49)
[2024-04-22] MEDS: ASPIRIN EC 81 MG TABLET PO (20:49)
[2024-04-22] MEDS: PRAVASTATIN 20 MG TABLET PO (20:49)
[2024-04-22] MEDS: allopurinoL 100 MG TABLET 300 MG PO (20:49)
[2024-04-22] MEDS: ROPINIROLE 0.25 MG TABLET 1 MG PO (20:50)
--- NOTE | 2024-04-22 22:02 | PC.NURSE ---
ice bucket thingy setup and applied to right knee, set for cold and compression.
[2024-04-22] MEDS: ONDANSETRON 4 MG/2 ML INJ IV (22:13)
[2024-04-23 03:57] VITALS: BP 133/59; PULSE 68; RESP 16; TEMP 36.2; O2SAT 99
[2024-04-23] MEDS: CEFAZOLIN 2 GM/100 ML PREMIX 100 ML IV (04:58)
[2024-04-23] MEDS: LACTATED RINGERS 1,000 ML 100 ML IV (04:59)
[2024-04-23 05:42] LABS: Hematocrit 28.5 % (36-46); Hemoglobin 9.4 g/dL (12.0-16.0)
[2024-04-23] MEDS: LEVOTHYROXINE 125 MCG TABLET PO (06:46)
[2024-04-23 08:24] VITALS: BP 133/68; PULSE 71; RESP 12; TEMP 36.7; O2SAT 98
[2024-04-23] MEDS: POTASSIUM CHLORIDE 10 MEQ TAB PO (10:04)
[2024-04-23] MEDS: ACETAMINOPHEN 325 MG TABLET 975 MG PO (10:04)
[2024-04-23] MEDS: OXYCODONE IR 5 MG TABLET PO ×2 (10:06→13:23)
[2024-04-23] MEDS: buPROPion XL 150 MG TAB 300 MG PO (10:06)
[2024-04-23] MEDS: DOCUSATE 100 MG CAPSULE PO (10:06)
[2024-04-23] MEDS: DULOXETINE 30 MG CAPSULE PO (10:06)
[2024-04-23] MEDS: ASPIRIN EC 81 MG TABLET PO (10:06)
[2024-04-23] MEDS: OXYBUTYNIN 5 MG ER TAB 15 MG PO (10:06)
[2024-04-23] MEDS: LORATADINE 10 MG TABLET PO (10:07)
[2024-04-23] MEDS: PANTOPRAZOLE DR 40 MG TABLET PO (10:07)
[2024-04-23] MEDS: LIDOCAINE 5% PATCH 1 EACH TOP (10:07)
--- NOTE | 2024-04-23 10:30 | PT.IIE ---
Current Diagnoses Unilateral primary osteoarthritis, right knee (04/22/24) Surgery Performed Operation Date: 04/22/24 12:30 Actual Procedures p Total Knee Arthroplasty - Robot(Right) - Sonja Crawford MD Surgical History (Last Updated 04/14/24 @ 13:32 by Anika Amezquita, RN) History of hysterectomy History of total left hip replacement (06/26/22) Hx of bariatric surgery (09/24/21) Hx of breast reduction, elective Hx of hernia repair Hx of thumb surgery (02/04/24) Hx of tonsillectomy Medical History (Last Updated 04/14/24 @ 14:27 by Anika Amezquita, RN) Anesthesia complication Arthritis Chronic bronchitis CKD (chronic kidney disease) Colitis Depression Diverticulitis Edema GERD (gastroesophageal reflux disease) Hearing impaired History of COVID-19 (~2021) HTN (hypertension) Hypothyroidism Muscle spasm Occipital neuralgia STAN (obstructive sleep apnea) Osteoarthritis Overactive bladder Physical Therapy Inpatient Evaluation/Re-Eval M1 PT/OT-IP Prior Functional Status Start: 04/23/24 13:03 Freq: NEEDED Status: Active Protocol: Document 04/23/24 10:30 AB (Rec: 04/23/24 13:23 AB [id number]) Medical Review Prior Functional Status Medical History Reviewed Yes Communication able to make needs known Mobility and Gait pt stated that she was modified independent with all moblities and ambulation using a SPC for indoor mobility and uses a 4WW for outdoor mobility Social History Household Members none Living Arrangements Apartment/Condo Number of Floors (Floors) One Floor Number of Stairs To Enter/Railing? no steps to enter pt lives in a senior housing Home Environment High Toilet,Walk in Shower Home Equipment Front Wheel Walker,Four Wheel Walker,Straight Cane,Shower Seat with Backrest,Hand Held Shower,Grab Bars Near Toilet, Grab Bars In Shower Additional Social History Comment pt's cousin will be staying with her to assist as long as needed pt stated that she has a high bed and usually steps up on a step stool to get into the bed . M2 PT-IP Current Condition Start: 04/23/24 13:03 Freq: NEEDED Status: Active Protocol: Document 04/23/24 10:30 AB (Rec: 04/23/24 13:23 AB [id number]) Physical Therapy Current Condition Current Condition Evaluation Date 04/23/24 Treatment Diagnosis s/p R TKA; difficulty in walking Onset Date 04/22/24 M3 PT-IP Subjective Start: 04/23/24 13:03 Freq: NEEDED Status: Active Protocol: Document 04/23/24 10:30 AB (Rec: 04/23/24 13:23 AB [id number]) Subjective Physical Therapy Visit Type Type Initial Evaluation Visit Start Time 10:30 Visit Stop Time 11:40 Number of NURSERY TECHNICIAN Visits 0 Physical Therapy Visit Comments Patient Comments pt is agreeable to do PT Therapy Pain Assessment Location right knee Intensity 7 Scale Used Numeric (0 - 10) Pain Management Techniques Distraction,Modification of Treatment,Re-positioning, Timing of Activity with Medications M4 PT-IP Mobility and Gait Start: 04/23/24 13:03 Freq: NEEDED Status: Active Protocol: Document 04/23/24 10:30 AB (Rec: 04/23/24 13:23 AB [id number]) PT-Bed Mobility Assessment Supine to Sit Supine to Sit Standby Assistance Sit to Supine Sit to Supine Standby Assistance PT-Transfer Assessment Sit to and From Stand Sit to and from Stand Contact Guard Assistance,1 Person Assistance,Use of Upper Extremities Equipment Transfer Assistive Device Gait Belt,Front Wheeled Walker Orthotic/Prosthetic Devices or Brace: No Transfers Transfer Destination Bed,Chair,Toilet Transfer Technique ambulated Transfer Ability Level of Assist Contact Guard Assistance,1 Person Assistance,Use of Upper Extremities Comments Mobility Comments pt supine in bed and agreeable to do PT. obtained PLOF and home set up from pt. pt's cousin arrived and confirmed that she will assist pt at home. post-op folder provided and reviewed contents. reviewed HEP. pt completed R heel slides prior to mobilizing. BP in supine: 135 /78 pt completed supine to sit SBA . able to sit on EOB SBA. complete sit to stand CGA and ambulated ~ 15 ft to the chair using fWW CGA. pt sat and rested on the chair. pt can be impulsive and easily distracted and needs cues to focus on task at hand. pt also tends to twist during ambulation and needs cues to slow down and take small steps for safety. caregiver training conducted. educated pt's cousin on how to use safety belt and how to assist pt. cousin was able to put safety belt on and assisted pt with sit to stand. pt requested to use the toilet. cousin was able to assist pt with ambulation to the toilet using fWW. pt's cousin assisted pt with toileting needs. pt ambulated CGA using fWW towards the sink ~ 20 ft and was able to maintain standing CGA while completing handwashing. pt ambulated to the EOB using fWW . completed stepping up a step stool using FWW CGA and cues. completed sit t<>supine SBA. pt completed sit to stand from the bed CGA and ambulated back to the chair using fWW CGA. pt's cousin was able to assist pt with mobility. positioned pt on the chair. call light and table placed within reach. informed NAC regarding pt's mobility and needs assistance to get ready for d/c. Gait Assessment Gait Gait Assistance Required: Contact Guard Assist,1 Person Assist Distance (Feet) 30 Able to Maintain Weight Bearing Status Yes During Gait Assistive Devices Assistive Device Gait Belt,Front Wheeled Walker Orthotic/Prosthetic Devices or Brace: No Gait Deviations General Gait Pattern Decreased Stride Length, Decreased Feet Clearance Factors Limiting Gait Function Factors Limiting Gait Function Decreased Activity Tolerance, Decreased Strength,Limited Range of Motion,Pain,Poor Balance,Poor Safety Awareness Stair Climbing Assessment Evaluation Level of Assist On Stairs Contact Guard Assistance Devices Stair Climbing Assistive Devices Front Wheel Walker Technique/Endurance Stair Climbing Direction Ascend Stair Climbing Technique Step to Step Comments Stair Climbing Comments pls refer to mobility section for details PT-Balance Assessment Sitting Balance and Reactions Static Sitting Balance Ability Normal Dynamic Sitting Balance Ability Good Standing Balance and Reactions Static Standing Balance Ability Fair Dynamic Standing Balance Ability Fair Device Used FWW M5 PT-IP Objective Assessments Start: 04/23/24 13:03 Freq: NEEDED Status: Active Protocol: Document 04/23/24 10:30 AB (Rec: 04/23/24 13:23 AB [id number]) Orientation Orientation/Cognition Level of Alertness Alert Orientation Name,Place,Situation Language Function Ability No Deficits Noted Safety Awareness Decreased Safety Awareness Memory Description No Deficits Noted Gross Range of Motion Lower Extremity ROM Assessment Right Impaired Impairments R knee flexion: ~ 70 deg Strength Lower Extremity Strength Assessment Right Impaired Hip 4-/5 Knee 3+/5 Sensation Assessment Sensation Sensation Description Numbness Comments Sensation Comments chronic numbness on BLE due to back issues per pt Muscle Tone Muscle Tone WNL Yes M6 PT-IP Treatment Start: 04/23/24 13:03 Freq: NEEDED Status: Active Protocol: Document 04/23/24 10:30 AB (Rec: 04/23/24 13:23 AB [id number]) Physical Therapy Treatment Exercises Exercises Heel Slides Education Education Provided Precautions,Weight Bearing Status,Post-Op Packet,Safety M7 PT-IP Assessment and Plan Start: 04/23/24 13:03 Freq: NEEDED Status: Active Protocol: Document 04/23/24 10:30 AB (Rec: 04/23/24 13:23 AB [id number]) PT Summary Assessment and Plan Potential Rehabilitation Potential Fair Status of Condition at Evaluation Stable Summary Impairments Pain,ROM,Strength,Balance, Coordination,Sensation, Cognition,Bed Mobility, Transfers,Gait,Activity Tolerance Assessment Summary pt is a 69 y/o F s/p R TKA POD 1. pt is WBAT oon RLE. pt requiring CGA with mobility using FWW and plans to go home with her cousin to assist her at home. caregiver training conducted and pt's cousin was able to assist pt safely with mobiltiy. pt plans to go home today. pt stated that she has outpt PT set up. Goals Bed Mobility Goal Independent Transfer Goal Independent,Front Wheeled Walker Gait Goal Independent,Front Wheel Walker Gait Distance 300 Other Goals up/down step stool using FWW to EOB Days to Meet Goals 3 Frequency of Treatment Frequency Of Treatment Twice a Day Treatment Plan Physical Therapy Treatment Plan Bed Mobility Training,Transfer Training,Gait Training, Therapeutic Exercise,Balance Retraining,Post Op Education, Discharge Planning,Hot or Cold Pack,Neuromuscular Re-ed, Coordination Retraining,Manual Therapy Weight Bearing Status Weight Bearing Status Weight Bear as Tolerated Allowed Weight Bearing Amount (enter % RLE WBAT or #) (%) Recommendations To Nursing Amount of Assist Needed 1 Person Assist Discharge Recommendations PT Discharge Recommendations Home with Assistance, Outpatient PT Transportation Needs at Discharge Private Vehicle
--- NOTE | 2024-04-23 10:31 | PM.DS.1 ---
History of Present Illness History of Present Illness Chief complaint: Right Total Knee Arthroplasty - Robot Narrative: Mandie is a 69 year old female who is POD#1 s/p R TKA by Dr. Crawford. Patient doing well overall, she has not gotten up to work with PT yet today but states her pain is mild-moderate only. She has been urinating, has a purewik in place since she has not ambulated w/ PT yet. She has outpatient PT scheduled w/ [facility]. Has walker and cane at home. Her cousin flew up from [place] to stay with patient during her first few nights home from the hospital, otherwise she does live alone. She is on a pain contract w/ her PCP who she gets hydrocodone from regularly, he is planning to manage her post-op pain medications. Denies fever, chills, chest pain, SOB, nausea, vomiting. Denies feeling of lightheadedness. Operative Date/Time/Diagnoses Date of procedure: 04/22/24 Time of procedure: 12:30 Pre-op diagnosis: Severe right knee OA Post-op diagnosis: same Procedure & Clinicians Procedure: Right total knee arthroplasty Same procedure as scheduled: Yes Indications: The patient has had progressively worsening right knee pain with radiographic changes consistent with arthritis. Non-operative management has failed and the patient has requested total knee replacement. The risks, benefits and alternatives to surgery were discussed with the patient prior to proceeding. Risks discussed included, but were not limited to, failure to relieve pain, stiffness, infection, nerve damage, deep venous thrombosis, pulmonary embolism, stroke, coma, heart attack, permanent paralysis and , as well as the potential need for eventual revision of the prosthetic. Surgeon: Sonja Crawford Account Executive Key Accounts: Lucretia Doyle Anesthesia Type: General Discharge Providers Provider Date of admission: 04/22/24 16:04 Discharge Date: 04/23/24 Primary care physician: Ricki Phillips MD Consults: 04/22/24 06:00 Consult to Anesthesiology Routine Comment: Consulting Provider: Anesthesiologist Reason for consultation: Regional block for post operative pain control Has provider been notified: No 04/22/24 17:35 Consult to Discharge Planning Routine Comment: Consult to Occupational Therapy Evaluate & Treat Comment: Physician Instructions: Evaluate and treat Consult to Physical Therapy Evaluate & Treat Comment: Physician Instructions: postop TKA protocol Discharge provider: Lucretia Doyle, PA-C Summary Hospital Course Discharge Diagnosis: stable s/p R TKA Hospital Course: Uncomplicated hospital course Exam Vital Signs (past 8 hours): - 04/23/24 03:57 04/23/24 08:24 Temperature 97.1 F L 98.1 F Pulse Rate 68 71 Respiratory Rate 16 12 Blood Pressure 133/59 L 133/68 Pulse Oximetry 99 98 Oxygen Delivery Method Room Air Oxygen Flow Rate 0 Narrative Exam Narrative: Lying comfortably in bed during our interview today, no acute distress. Ice machine and SCDs on and functioning. Resp Effort & Inspection: normal respiratory effort and able to speak in complete sentences Cardio Rate: regular rate Other: Extremities appear well perfused. Skin Other: Post-surgical dressing clean, dry and intact. Neuro General: patient alert, patient awake and patient oriented x3 Extrem Other: 5/5 strength w/ DF, PF, EHL bilaterally. Calf soft and compressible bilaterally Gross sensation intact to light touch throughout bilateral lower extremities Objective Labs 04/23/24 04:59 Labs: Laboratory Results - last 24 hr 04/23/24 04:59 Hgb 9.4 L Hct 28.5 L PFSH Medical History (Updated 04/14/24 @ 14:27 by Anika Amezquita RN) History of COVID-19 (~2021) Occipital neuralgia GERD (gastroesophageal reflux disease) Colitis Diverticulitis Hearing impaired Anesthesia complication Edema STAN (obstructive sleep apnea) Muscle spasm Osteoarthritis Hypothyroidism Overactive bladder HTN (hypertension) Depression CKD (chronic kidney disease) Chronic bronchitis Arthritis Surgical History (Updated 04/14/24 @ 13:32 by Anika Amezquita RN) Hx of thumb surgery (02/04/24) History of total left hip replacement (06/26/22) Hx of tonsillectomy History of hysterectomy Hx of hernia repair Hx of breast reduction, elective Hx of bariatric surgery (09/24/21) Social History household members: none Smoking Status: Never smoker alcohol intake: current Discharge Assessment & Plan Assessment and Plan Assessment: stable s/p R TKA Plan of Treatment: 1) Plan to discharge to home today with family pending PT evaluation and patients ability to safely ambulate. 2) Continue multimodal pain management with ice to the knee for additional pain control. Patients post-op pain medication will be managed by her PCP d/t her pain control w/ him. 3) ASA b.i.d. for DVT prophylaxis. 4) Start outpatient physical therapy to work on range of motion and mobility. 5) Keep dressing intact, clean, dry until 2 week postop appointment. No soaking the incision site in pools or tubs. No topical ointments or creams to the incision site. 6) Follow up at [facility] in 2 weeks for a postop appointment and wound check. All patient's questions were answered, she demonstrates understanding and is in agreement with the plan. Call our office if any questions or concerns arise. Discharge Plan Discharge Plan Patient Disposition: Home Discharge orders & Medications Prescriptions: New aspirin 81 mg Tablet,Delayed Release (Dr/Ec) 81 mg PO BID Qty: 90 0RF docusate sodium 100 mg Capsule 100 mg PO BID Qty: 30 1RF Continued losartan 50 mg Tablet 100 mg PO BEDTIME Lasix 40 mg Tablet 80 mg PO 3XW potassium chloride 10 mEq Capsule, Extended Release 10 meq PO DAILY Laure Allergy 60 mg Tablet 60 mg PO QAM pantoprazole 40 mg Tablet,Delayed Release (Dr/Ec) 40 mg PO DAILY levothyroxine 125 mcg Tablet 125 mcg PO DAILY ropinirole 0.5 mg Tablet 0.5 - 1 mg PO BEDTIME Rx Instructions: administer 1-3 hours before bedtime hydroxyzine HCl 25 mg Tablet 25 mg PO BID PRN (Reason: Anxiety) allopurinol 300 mg Tablet 300 mg PO BEDTIME pravastatin 20 mg Tablet 20 mg PO BEDTIME nystatin 100,000 unit/gram Powder 1 applic TOPICAL BID-TID ondansetron 4 mg Tablet,Disintegrating 4 mg PO Q6H PRN (Reason: Nausea) duloxetine 30 mg Capsule,Delayed Release(Dr/Ec) 30 mg PO DAILY oxybutynin chloride 15 mg Tablet Extended Release 24hr 15 mg PO DAILY meloxicam 15 mg tablet 15 mg PO DAILY lidocaine 5 % adhesive patch,medicated 1 patch topical DAILY bupropion HCl 300 mg tablet extended release 24 hr 300 mg PO DAILY acetaminophen 500 mg Capsule 1,000 mg PO TID tirzepatide 2.5 mg/0.5 mL Pen Injector 2.5 mg SUBCUT QWEEK Follow up/Referrals: Sonja Crawford MD [Physician] - (Follow up at [facility] as scheduled in 2 weeks. ) Ricki Phillips MD [Primary Care Provider] - Diet/Activity/Treatments Diet: Diet as Tolerated Activity: Weightbearing as tolerated, work with outpatient physical therapy to increase strength and mobility Cold/Heat Therapy: Ice to the knee for additional pain control Skin/Wound/Dressing Care Report to your healthcare provider any signs of infection, such as:: chills, fever, night sweats, unusual drainage and unusual redness Dressing: Keep dressing intact, clean and dry until 2 week post-op appointment. No soaking the incision site in pools or tubs. No topical ointments or creams to the incision site. Visit Report/Discharge Packet Instructions: DI for Knee Replacement, DI for Prescription Opioid Use Stand Alone Forms: Patient Portal/API, Stroke Signs & Symptoms Discharge Data Primary Care Provider: Ricki Phillips Quality VTE Deep Vein Thrombosis/Pulmonary Embolism Present on Admission: No
[2024-04-23 11:40] VITALS: BP 125/62; PULSE 67; RESP 14; TEMP 36.7; O2SAT 98
--- NOTE | 2024-04-23 13:37 | PC.NURSE ---
Pt discharged at 1340, escorted off floor in wheelchair accompanied by family and hospital staff. IV removed, discharge teaching completed including new medications, wound care and follow up appointments. Questions and concerns addressed. Patient left the floor with all belongings.
--- NOTE | 2024-04-23 15:28 | CM.DANOTE ---
Patient is a 69 yo female admitted [facility] status on 04/22/24 for RTKA. Pt has [facility] and [facility] for insurance and her PCP is Dr. Fili Phillips. EMR was reviewed. Per Ortho PA, pt tolerated procedure well and pain seems controlled, tolerating diet, voiding and to work with PT and then discharge home later today. Per PT, completed eval and CG training bedside and recommending home with assist and outpt PT. SW met bedside with pt and her cousin/DPCELINA Galindo and explained role and they confirm that pt lives in [place] in a condo near family and is independent at baseline and has a cane and walker due to her ongoing knee and hip issues. Pt is active and independent at baseline and drives and has lots of local supportive family. Pt denies any hx of HH or SNF and has used outpt PT prior. Cousin confirms that she will transport pt home and provide assist and stay with pt at discharge and they do not anticipate any further needs and preference is home this afternoon. PNEUMATIC TESTER MECHANIC prepared patient and RN provided discharge instructions and they will sweet pickled fruit maker meds on the way home from pharmacy and no further concerns at this time. Plan: Patient to discharge home after lunch via cousin POV and outpt f/u and no further SW needs at this time. NEELAM Johnston Discharge Planning/Care Management CM Discharge Assessment Start: 04/23/24 15:26 Freq: Status: Discharge Protocol: Document 04/23/24 15:26 BF (Rec: 04/23/24 15:28 [id number]) Discharge Planning Assessment Assigned Founder And Chief Executive Officer NEELAM Tobias/Assigned Designee Name Raquel Galindo Contact Information [phone] Advance Directives? Yes Advance Directives on File No History Provided By Patient,Family Member,Medical Record Has Patient been admitted in last 30 No days? Prior Living Arrangements Apartment/Condo Household Members none Type of transporation used prior to Drives own vehicle admit Independent with ADL's Yes Is patient alert and oriented? Yes Needs Assistance With Home Chores / Shopping Caregiver for Another No Community Services used prior to Physical Therapy admission: DME Already Rented / Owned FWW / Walker,Cane Patient/Family Preference OP PT Therapy Barriers to Discharge No Discharge Plan Home Community Services Physical Therapy Transportation Arrangement Jose Raulurbano Josie bedside and will transport Referrals Initiated None needed Whiteboard Updated in Patient Room with Yes name and ext. # of Founder And Chief Executive Officer Review Status In Process Please Provide Date Initial DC 04/23/24 Assessment Was Performed Next Review Type Continued Stay Review Pre-Anesthesia Assessment Start: 04/14/24 13:24 Freq: Status: Complete Protocol: Document 04/14/24 13:24 [facility] (Rec: 04/14/24 14:39 CAB [id number]) Pre-Anesthesia Assessment PAC Comment Pt refuses any IVs placed to dorsum of hands, causes severe swelling Patient Information Reviewed Via Chart Review Diagnostic Results BMP/CMP,CBC,EKG Comment Labs/EKG @ 03/22/24 Primary Care Provider Ricki Phillips Seen Specialist in Last 12 Months Yes Specialist Seen Orthopedist,Other Comment Neurology visit 04/19/24 scanned and in surgery folder Primary Language American Preferred Language American Investment Trader Required No Height 147.32 cm Weight 74.843 kg Body Mass Index (BMI) 34.4 Hearing Ability Hearing Impaired,Use of Hearing Aid Visual Assist Glasses Dentition Type Teeth, Natural Present,Teeth, Missing Barriers to Learning Auditory Hx Anesthesia Reactions Yes: Severe PONV, Reglan worked well pre-op, daniel- operative, post-op Hx Family Anesthesia Reaction No Hx Malignant Hyperthermia No Hx Blood Transfusions No Hx Blood Transfusion Reaction No Anesthesia Review Requested No Interface Analyst No alcohol intake current alcohol intake frequency holidays/special occasions only Smoking Status Never smoker Substance Use Type does not use Pain Present Pain Reported Musculoskeletal Symptoms Abnormal Gait,Back Pain, Difficulty Walking,Joint Pain, Muscle Spasms History of Falling (Recent or History of Yes ) Patient is completely paralyzed or No completely immobile Prosthesis or Orthotic Device Front Wheel Walker Mental Status Oriented to own ability Is patient on oxygen? No Does patient have MATTA/SOB No Hx Sleep Apnea Yes: Resolved after losing 100lbs w/gastric sleeve surgery CPAP/BIPAP use not prescribed Currently Taking a Beta Nellie No Can You Climb a Flight of Stairs Without No SOB Hx Chest Pain Yes: If I eat too much or too fast Hx SOB No Hx Syncope or Dizziness No Anti-Coagulant Therapy No Has a Tractor Trailer Driver No Cardiac Testing No Hx Pacemaker/ICD No Pacemaker Rep Required? No Cardiac Clearance Received No Diet Type At Home Regular Dysphagia Yes: With large pills Gastrointestinal Symptoms Reflux Bladder Pattern Frequency,Urgency Urinary Catheter Present No Hx Urinary Self Catheterization No Diabetes No HgbA1C 5.3 Date 03/22/24 Patient No Lactating No Hx Drug Resistant Organism Yes: C-diff 2018, 2020, MRSA - face 2020 Presence of External or Internal Medical No: Gastric sleeve,clip from Devices tubal ligation, left hip/thumb , L breast marker Received a COVID vaccine? Yes: booster x 3 Marital Status / Lives With none Current Living Arrangements Apartment/Condo Support System Family Comment Brother and sister are available to assist at DC Patient Discharge Plan Description Return Home Comment Pt advised possible overnight length of stay per surgeon Feels Safe in Current Environment Yes Been Physically Hurt or Threatened By a No Person in Current Environment Do you have thoughts of harming yourself None or others? Are you currently considering suicide? No Do you have a plan to hurt yourself or No Plan others? Do You Have Any Spiritual Beliefs That No May Affect Your HC Choices? Do You Have Any Cultural Practices That No May Affect Your HC Choices? Comment Zoroastrian Who Can We Speak to About Patient's Care Family, friends Identifying Code for Release of Patient Declines to issue Information Health Care Proxy/Next of Kin Rylee Gonzalez (niece) Rocky (son ) Health Care Proxy Phone Number Rylee: [phone] Rocky: Emergency Contact Name Rylee Gonzalez (niece) Rocky (son ) Emergency Contact Phone Number Rylee: [phone] Rocky: Advance Directives? Yes Advance Directives on File No Requested Patient Bring Advanced Yes Directives DOS Power of Facility Manager Yes Power of Facility Manager Name Rylee Gonzalez (neice) Rocky (son ) Power of Facility Manager Phone Number Rylee: [phone] Rocky: [phone] PAC Instructions Assistance for 24 hours post- op,Do not shave/clip surgical site,Durable medical equipment ,Medications to take/avoid, Nasal antibiotic,No ETOH/ petroleum product on skin DOS, NPO,Post-op transportation,Pre -surgical wash,Sensory aids, Sturdy shoes/comfortable clothes,Do not bring valuables and remove jewelry
== END 2024-04-23 13:48 | disposition home or self-care (01) ==
LOC: OR 10:55 → AC 04-23 10:31
PROVIDERS: PCP Family Medicine; Referring Provider Orthopaedic Surgery; Visit Provider Orthopaedic Surgery
PROC: 0SRC0JZ Replacement of Right Knee Joint with Synthetic Substitute, Open Approach (ICD-10-PCS; CPT 27447; principal; 2024-04-22 12:30)
DX: M17.11 Unilateral primary osteoarthritis, right knee (principal); M25.761 Osteophyte, right knee
CPT/HCPCS: 27447; 36415; 64450; 73560; 85014; 85018; 97161; 97530; C1776; C9290; J0171; J0690; J1100; J1170; J1885; J2175; J2405; J2704; J3010